=== PATIENT | female | born 1975 | race Caucasian/White ===

== ENCOUNTER 2018-02-26 20:43 | Outpatient (CLI) | payer SELFPAY | END 2018-02-26 20:44 | disposition short-term general hospital (02) | LOC: EMS 20:43 | PROVIDERS: ATTEND Surgery | DX: S99.911A Unspecified injury of right ankle, initial encounter (principal); V00.121A Fall from non-in-line roller-skates, initial encounter; Y93.51 Activity, roller skating (inline) and skateboarding; Y92.838 Other recreation area as the place of occurrence of the external cause | CPT/HCPCS: A0425; A0427 ==

== ENCOUNTER 2020-04-01 07:00 | Outpatient (CLI) | payer OTHER ==
[2020-04-01 11:50] LABS: BASOPHILS % (AUTO) 0.5 %; EOSINOPHILS % (AUTO) 10.1 %; HGB - HEMOGLOBIN 13.1 g/dL (12.0-16.0); LYMPHOCYTES % (AUTO) 27.8 %; MEAN CORPUSCULAR HEMOGLOBIN 28.4 pg (27.0-31.0); MEAN CORPUSCULAR HGB CONC 32.6 g/dL (32.0-36.0); MEAN CORPUSCULAR VOLUME 87.2 fL (81.0-99.0); MEAN PLATELET VOLUME 9.5 fL (7.9-10.8); MONOCYTES % (AUTO) 5.4 %; NEUTROPHILS % (AUTO) 55.8 %; PLT - PLATELET COUNT 340 10^3/uL (130-450); RED BLOOD COUNT 4.61 10^6/uL (4.20-5.40); WHITE BLOOD COUNT 11.6 x10^3/uL (4.8-10.8)
[2020-04-01 12:02] LABS: ABNORMAL LYMPHS % (MANUAL) 0 %; BAND NEUTROPHILS % (MANUAL) 0 %
[2020-04-01 12:11] LABS: ALBUMIN/GLOBULIN RATIO 1.3 (1.0-2.2); BILIRUBIN,TOTAL 0.5 mg/dL (0.2-1.0); CALCIUM 9.5 mg/dL (8.5-10.3); CREATININE 0.7 mg/dL (0.4-1.0); TOTAL PROTEIN 7.2 g/dL (6.7-8.2)
[2020-04-01 13:04] LABS: EOSINOPHILS # (MANUAL) 0.8 10^3/uL (0-0.7); LYMPHOCYTES # (MANUAL) 3.2 10^3/uL (1.5-3.5); LYMPHOCYTES % (MANUAL) 28 %; MONOCYTES # (MANUAL) 0.7 10^3/uL (0.0-1.0)
[2020-04-01 13:06] LABS: PLATELET ESTIMATE, MANUAL NORMAL (130-450,000) (NORMAL); PLATELET MORPHOLOGY NORMAL APP (NORMAL); RBC MORPHOLOGY (MULTIPLE) NORMAL APPEARANCE (NORMAL)
[2020-04-01 13:07] LABS: DIFFERENTIAL COMMENT MANUAL DIFFERENTIAL
== END 2020-04-01 23:59 | disposition home or self-care (01) ==
LOC: LAB.WCP 07:00
PROVIDERS: ATTEND Family Medicine
DX: K29.70 Gastritis, unspecified, without bleeding (principal)
CPT/HCPCS: 36415; 80053; 83690; 85025

== ENCOUNTER 2021-01-26 14:33 | Outpatient (CLI) | payer OTHER ==
--- NOTE | 2021-01-27 14:21 | Mammography Report ---
BILATERAL DIGITAL SCREENING MAMMOGRAM 3D/2D: 01/26/2021 CLINICAL: Routine screening. Comparison is made to exam dated: 06/23/2015 mammogram - [facility]. There are sc attered fibroglandular elements in both breasts. No significant masses, calcifications, or other findings are seen in either breast. There has been no significant interval change. IMPRESSION: NEGATIVE There is no mammographic evidence of malignancy. A 1 year screening mammogram is recommended. This exam was interpreted at Station ID: [id number]. NOTE: For mammograms, a report in lay terms will be sent to the patient. Approximately 15% of breast malignancies will not be visualized mammographically. In the management of a palpable breast mass, a negative mammogram must not discourage biopsy of a clinically suspicious lesion. Electronically Signed By: Piero Thomas M.D. [email or web address]:01/26/2021 17:36:09 ACR BI-RADS Category 1: Negative 3341F PARENCHYMAL PATTERN: (A) - The breast(s) demonstrate(s) scattered fibroglandular densities. BI-RADS CATEGORY: (1) - 1 RECOMMENDATION: (ANNUAL) - Recommend routine annual screening mammography. [id number] 1 year screening LATERALITY: (B)
== END 2021-01-26 14:34 | disposition home or self-care (01) ==
LOC: DI 14:33
DX: Z12.31 Encounter for screening mammogram for malignant neoplasm of breast (principal)

== ENCOUNTER 2022-05-22 12:46 | Outpatient (CLI) | payer OTHER | END 2022-05-22 23:59 | disposition home or self-care (01) | LOC: LAB.N 12:46 | PROVIDERS: ATTEND Obstetrics & Gynecology | DX: Z01.812 Encounter for preprocedural laboratory examination (principal); Z20.822 Contact with and (suspected) exposure to COVID-19 ==

== ENCOUNTER 2022-05-23 08:54 | Day surgery (SDC) | payer OTHER ==
[2022-05-23] MEDS ORDERED: LACTATED RINGERS 1,000 ML IV ONE ×2 (09:17→12:07)
[2022-05-23 09:20] LABS: BASOPHILS # (AUTO) 0.1 10^3/uL (0.0-0.1); BASOPHILS % (AUTO) 0.8 %; EOSINOPHILS # (AUTO) 0.4 10^3/uL (0.0-0.7); HCT - HEMATOCRIT 42.5 % (37.0-47.0); HGB - HEMOGLOBIN 13.6 g/dL (12.0-16.0); LYMPHOCYTES # (AUTO) 3.7 10^3/uL (1.5-3.5); LYMPHOCYTES % (AUTO) 35.2 %; MEAN CORPUSCULAR HEMOGLOBIN 27.7 pg (27.0-31.0); MEAN CORPUSCULAR VOLUME 86.6 fL (81.0-99.0); MEAN PLATELET VOLUME 8.7 fL (7.9-10.8); MONOCYTES # (AUTO) 0.6 10^3/uL (0.0-1.0); MONOCYTES % (AUTO) 5.4 %; NEUTROPHILS # (AUTO) 5.6 10^3/uL (1.5-6.6); NEUTROPHILS % (AUTO) 54.2 %; PLT - PLATELET COUNT 377 10^3/uL (130-450); RED BLOOD COUNT 4.91 10^6/uL (4.20-5.40); RED CELL DISTRIBUTION WIDTH 12.4 % (12.0-15.0); WHITE BLOOD COUNT 10.4 x10^3/uL (4.8-10.8)
[2022-05-23 09:24] LABS: HCG UR QUAL NEGATIVE
--- NOTE | 2022-05-23 09:28 | ANESTHESIA ---
Pre-Anesthesia VS, & Labs - Diagnosis desires sterility - Procedure laparoscopic bilateral salpingectomy Vital Signs: Temp Pulse Resp BP Pulse Ox O2 Flow Rate 36.6 C 93 17 146/89 H 97 05/23/22 09:11 05/23/22 09:11 05/23/22 09:11 05/23/22 09:11 05/23/22 09:11 Height: 5 ft Weight (kg): 89 kg Body Mass Index: 38.3 BMI Classification: Obese - NPO >8 hours - Is Patient ?: No - Lab Results Current Lab Results: Laboratory Tests 05/23/22 09:18: WBC 10.4, RBC 4.91, Hgb 13.6, Hct 42.5, MCV 86.6, MCH 27.7, MCHC 32.0, RDW 12.4, Plt Count 377, MPV 8.7, Neut # (Auto) 5.6, Lymph # (Auto) 3.7 H, Young # (Auto) 0.6, Eos # (Auto) 0.4, Baso # (Auto) 0.1, Absolute Nucleated RBC 0.00, Nucleated RBC % 0.0 Lab results reviewed: Yes Fish Bones: 05/23/22 09:18 Home Medications and Allergies Home Medications: Ambulatory Orders Lisinopril [Zestril] 10 mg PO DAILY 05/18/22 Lisinopril [Zestril] 10 mg PO DAILY 05/18/22 Allergies/Adverse Reactions: Allergies Allergy/AdvReac Type Severity Reaction Status Date / Time No Known Drug Allergies Allergy Verified 07/30/15 11:58 Anes History & Medical History - Anesthetic History Anesthesia Complications: reports: Post-Operative Nausea/Vomiting - Medical History Cardiovascular: reports: Hypertension Pulmonary: reports: None Gastrointestinal: reports: None Urinary: reports: None Neuro: reports: None Musculoskeletal: reports: None Endocrine/Autoimmune: reports: None Blood Disorders: reports: None Skin: reports: None Smoking Status: Never smoker Psychosocial: reports: No issues indicated History of Cancer?: No - Surgical History Eyes Ears Nose Throat (EENT): reports: Myringotomy (tubes) Orthopedic: reports: Other (right ankle fracture) Exam General: Alert, Oriented x3, Cooperative, No acute distress Dental: WNL Mouth Openin Fingerbreadth Neck Mobility: Normal Mallampati classification: I Thyromental Distance: 4-6 cm Mental/Cognitive Status: Alert/Oriented X3, Normal for patient Plan Anesthesia Type: General Consent for Procedure(s) Verified and Reviewed: Yes Code Status: Attempt Resuscitation ASA classification: 2-Mild systemic disease Is this case an emergency?: No
[2022-05-23] MEDS ORDERED: fentaNYL 100 MCG/2 ML VIAL IVP PRN (09:30)
[2022-05-23] MEDS ORDERED: NALOXONE 0.4 MG/ML VIAL IVP PRN (09:30)
[2022-05-23] MEDS ORDERED: ONDANSETRON 4 MG/2 ML VIAL IVP PRN (09:30)
[2022-05-23] MEDS ORDERED: HYDROmorphone 0.5 MG/0.5 ML SYRINGE IVP PRN (09:30)
[2022-05-23] MEDS ORDERED: ATROPINE ABBOJECT 1 MG/10 ML SYRINGE IVP PRN (09:30)
[2022-05-23] MEDS ORDERED: MORPHINE 2 MG/ML CARPUJECT IVP PRN (09:30)
[2022-05-23] MEDS ORDERED: PROPOFOL 200 MG/20 ML VIAL IVP ONE (09:43)
[2022-05-23] MEDS ORDERED: MIDAZOLAM 2 MG/2 ML VIAL ONE (09:44)
[2022-05-23] MEDS ORDERED: ROCURONIUM 50 MG/5 ML VIAL ONE (09:44)
[2022-05-23] MEDS ORDERED: LIDOCAINE MPF 2%-EPI 1:200000 20 ML VIAL ONE (09:45)
[2022-05-23] MEDS ORDERED: BUPIVACAINE 0.5% PF 30 ML VIAL ONE (09:45)
[2022-05-23] MEDS ORDERED: LACTATED RINGERS 1,000 ML IV SCH (10:00)
[2022-05-23] MEDS ORDERED: DEXAMETHASONE 4 MG/ML VIAL ONE (10:32)
[2022-05-23] MEDS ORDERED: fentaNYL 100 MCG/2 ML VIAL ONE ×2 (10:52→12:19)
[2022-05-23] MEDS ORDERED: BUPIVACAINE 0.5% PF 30 ML VIAL INFIL ONE ×2 (11:02)
[2022-05-23] MEDS ORDERED: LIDOCAINE MPF 1%-EPI 1:200000 30 ML VIAL SUBQ ONE ×2 (11:02)
[2022-05-23] MEDS ORDERED: HYDROcod/ACETAM 10 MG/325 MG TABLET PO PRN (11:42)
[2022-05-23] MEDS ORDERED: SUGAMMADEX 200 MG/2 ML VIAL IVP ONE (11:49)
--- NOTE | 2022-05-23 11:49 | OPERATIVE REPORT ---
Operative Report - General Procedure Date: 05/13/22 Planned Procedure: Laparoscopic bilateral salpingectomy Pre-Op Diagnosis: Desires sterility Procedure Performed: Laparoscopic bilateral salpingectomy Left paratubal cystectomy Post Op Diagnosis: Desires sterility, left adnexal cyst - Procedure Note Primary Surgeon: Arnulfo Denney MD Secondary Surgeon: Jennifer Paredes DO Anesthesia Provider: Pamella Noyola CRNA Anesthesia Technique: General ET tube Pathology: Bilateral fallopian tubes Left paratubal cyst IV Fluids (mL): 900 Estimated Blood Loss (mL): 10 Complications: None - Other Other Information/Narrative: Prior to surgery, we discussed the risks, alternatives, benefits to tubal ligation. We discussed long-acting control such as IUDs and implants. We had discussion about partner vasectomy and the pros and cons to this including a smaller surgery, and easier recovery. We discussed the general risk of surgery including infection, bleeding, damage to other organs, needing a larger incision. Specific to tubal ligation, we discussed the risk of regret, and discussed that regret is greater in those under 30, without children, and not in stable relationships. Patient says she is confident in her decision to not have any more children. We also discussed the risk of failure, and that less than 1/100 tubal ligation fail, but if it did, she would be at increased risk of ectopic . Patient desires to proceed with bilateral tubal ligation. Patient was taken to the OR and placed in the dorsal lithotomy position using gr eat white stirrups after adequate anesthesia was obtained. Patient was prepped and draped in the usual fashion. A bivalve speculum was used to visualize the cervix and a uterine manipulator was placed. 4 mL of 2% lidocaine with epinephrine was placed for a paracervical block. The uterus was sounded to 7 cm. The HUMI medicated was then placed through the cervical os and the balloon was inflated. Attention was then turned to the abdomen after sterile attire was exchanged. 0.25% Marcaine was injected below the umbilicus. An 11 blade scalpel was used to incise the skin. Direct visual entry was used to place the infraumbilical trocar, but due to patient's body habitus, this was difficult. A varies needle was used to attempt into the cavity and insufflation was achieved. The trocar was then placed under direct visualization. Upon entering the peritoneal cavity, low flow was used to ensure appropriate positioning. Upon visualization of the abdominal cavity, high flow was then initiated. The patient had a large amount of preperitoneal and intra-abdominal adipose tissue. 2 additional trocars was placed under visualization in a similar fashion in the right and left lower quad rants. After visualization of the left fallopian tube, a cyst was noted to be paratubal in origin and separate from the ovary. The tube was grasped with an atraumatic grasper. The mesosalpinx was cauterized and cut with a Ligasure device. This was carried up until the level of the cornua. At that point the tube was coagulated and transected from the uterus. Attention was then turned to the right fallopian tube which was then removed in a similar fashion. The left lower quadrant trocar was exchanged for a 11 mm trocar so a Endo Catch bag could be used. The bag was inserted into the abdomen, opened and the specimen was placed inside. The bag was moved to the service of the abdomen and the bag was opened. With visualization of the cyst, it was incised with the 11 blade scalpel and contents removed with suction. The bag was easily removed from the abdomen. The abdomen was reviewed for hemostasis, and a healthy-appearing liver was noted. The Dagoberto-Aquiels device was then inserted through the 11 mm trocar site and bilateral sutures were placed to reapproximate the fascia using 0 Vicryl. The trocars were then removed, and abdomen was evacuated of gas. The trocar sites were then closed with a 4-0 Monocryl in a sub-cuticular fashion and covered with Dermabond. The uterine manipulator was removed and hemostasis was noted. Patient was taken to the PACU in stable condition.
[2022-05-23] MEDS ORDERED: oxyCODONE 5 MG TABLET PO ONE (13:16)
[2022-05-23] MEDS ORDERED: ACETAMINOPHEN 500 MG TABLET PO ONE (13:17)
[2022-05-23 14:54] VITALS: BP 118/72
--- NOTE | 2022-05-23 15:33 | ANESTHESIA POST OP EVALUATION ---
Anesthesia Post Eval - Post Anesthesia Eval Vitals: Last Vital Signs Temp 36 C L 05/23/22 14:30 Pulse 70 05/23/22 14:30 Resp 16 05/23/22 14:30 BP 118/72 05/23/22 14:30 Pulse Ox 95 05/23/22 14:30 O2 Flow Rate CV Function Including HR & BP: Stable Pain Control: Satisfactory Nausea & Vomiting: Negative Mental Status: Baseline Respiratory Status: Airway Patent Hydration Status: Satisfactory Anesthesia Complications: None
== END 2022-05-23 08:55 | disposition home or self-care (01) ==
LOC: SDS 08:54
PROVIDERS: ATTEND Obstetrics & Gynecology
PROC: 0UB64ZZ Excision of Left Fallopian Tube, Percutaneous Endoscopic Approach (ICD-10-PCS; 2022-05-23)
PROC: 0UT74ZZ Resection of Bilateral Fallopian Tubes, Percutaneous Endoscopic Approach (ICD-10-PCS; principal; 2022-05-23 10:00)
DX: Z30.2 Encounter for sterilization (principal); N83.8 Other noninflammatory disorders of ovary, fallopian tube and broad ligament; E66.9 Obesity, unspecified; Z68.38 Body mass index [BMI] 38.0-38.9, adult; I10 Essential (primary) hypertension; Z20.822 Contact with and (suspected) exposure to COVID-19
CPT/HCPCS: 36415; 58661; 58662; 81025; 85025; A9270; J7120

== ENCOUNTER 2023-01-25 08:00 | Outpatient (CLI) | payer OTHER | END 2023-01-25 23:59 | disposition home or self-care (01) | LOC: LAB.N 08:00 | PROVIDERS: ATTEND Specialist | DX: R30.0 Dysuria (principal) | CPT/HCPCS: 87086; 87181 ==

== ENCOUNTER 2023-04-12 08:13 | Outpatient (CLI) | payer OTHER ==
[2023-04-12 11:44] LABS: BASOPHILS # (AUTO) 0.1 10^3/uL (0.0-0.1); BASOPHILS % (AUTO) 0.6 %; EOSINOPHILS # (AUTO) 0.3 10^3/uL (0.0-0.7); EOSINOPHILS % (AUTO) 3.3 %; HCT - HEMATOCRIT 43.1 % (37.0-47.0); HGB - HEMOGLOBIN 13.5 g/dL (12.0-16.0); LYMPHOCYTES # (AUTO) 3.7 10^3/uL (1.5-3.5); LYMPHOCYTES % (AUTO) 37.6 %; MEAN CORPUSCULAR HEMOGLOBIN 27.3 pg (27.0-31.0); MEAN CORPUSCULAR HGB CONC 31.3 g/dL (32.0-36.0); MEAN CORPUSCULAR VOLUME 87.2 fL (81.0-99.0); MEAN PLATELET VOLUME 9.3 fL (7.9-10.8); MONOCYTES # (AUTO) 0.5 10^3/uL (0.0-1.0); MONOCYTES % (AUTO) 5.4 %; NEUTROPHILS # (AUTO) 5.2 10^3/uL (1.5-6.6); NEUTROPHILS % (AUTO) 52.9 %; PLT - PLATELET COUNT 408 10^3/uL (130-450); RED BLOOD COUNT 4.94 10^6/uL (4.20-5.40); RED CELL DISTRIBUTION WIDTH 12.2 % (12.0-15.0); WHITE BLOOD COUNT 9.8 x10^3/uL (4.8-10.8)
[2023-04-12 12:18] LABS: ALBUMIN 4.4 g/dL (3.2-5.5); ALBUMIN/GLOBULIN RATIO 1.5 (1.0-2.2); ALKALINE PHOSPHATASE 96 IU/L (42-121); ALT ALANINE AMINOTRANSFERASE 31 IU/L (10-60); AST ASPARTATE AMINOTRANSFERASE 25 IU/L (10-42); BILIRUBIN,TOTAL 0.3 mg/dL (0.2-1.0); BUN - BLOOD UREA NITROGEN 10 mg/dL (6-20); CALCIUM 10.6 mg/dL (8.5-10.3); CARBON DIOXIDE - CO2 30 mmol/L (21-32); CHLORIDE 101 mmol/L (101-111); CHOL/HDL RATIO 3.8 (<4.4); CHOLESTEROL 237 mg/dL; CREATININE 0.7 mg/dL (0.6-1.3); GFR - MDRD 89 (>89); GLUCOSE 103 mg/dL (74-104); HDL CHOLESTEROL 62 mg/dL; LDL CHOLESTEROL,CALCULATED 131 mg/dL; LDL/HDL RATIO 2.1 (<4.4); SODIUM 137 mmol/L (135-145); TOTAL PROTEIN 7.3 g/dL (6.4-8.9); TRIGLYCERIDES 221 mg/dL (48-352); VLDL CHOLESTEROL 44 mg/dL
[2023-04-12 12:31] LABS: THYROID STIMULATING HORMONE 2.42 uIU/mL (0.34-5.60)
== END 2023-04-12 08:14 | disposition home or self-care (01) ==
LOC: LAB.N 08:13
PROVIDERS: ATTEND Physician Assistant Medical
DX: Z00.00 Encounter for general adult medical examination without abnormal findings (principal)
CPT/HCPCS: 36415; 80053; 80061; 83721; 84443; 85025

== ENCOUNTER 2023-05-31 09:30 | Outpatient (CLI) | payer OTHER ==
[2023-05-31 12:39] LABS: CALCIUM 9.8 mg/dL (8.5-10.3); CREATININE 0.7 mg/dL (0.6-1.3); POTASSIUM 4.3 mmol/L (3.5-4.5)
== END 2023-05-31 09:31 | disposition home or self-care (01) ==
LOC: LAB.N 09:30
PROVIDERS: ATTEND Physician Assistant Medical
DX: E83.52 Hypercalcemia (principal)
CPT/HCPCS: 36415; 80048

== ENCOUNTER 2023-07-21 12:15 | Outpatient (CLI) | payer OTHER | END 2023-07-21 12:30 | disposition home or self-care (01) | LOC: LAB.N 12:15 | PROVIDERS: ATTEND Registered Nurse | DX: N30.00 Acute cystitis without hematuria (principal) | CPT/HCPCS: 87077; 87086; 87181 ==

== ENCOUNTER 2023-09-15 12:30 | Outpatient (CLI) | payer OTHER | END 2023-09-15 12:45 | disposition home or self-care (01) | LOC: LAB.N 12:30 | PROVIDERS: ATTEND Physician Assistant Medical | DX: N30.00 Acute cystitis without hematuria (principal) | CPT/HCPCS: 81514; 87086; 87491; 87591; 87661 ==

== ENCOUNTER 2024-02-19 09:21 | Outpatient (CLI) | payer OTHER ==
--- NOTE | 2024-02-20 11:00 | Mammography Report ---
BILATERAL DIGITAL SCREENING MAMMOGRAM 3D/2D: 02/19/2024 CLINICAL: Routine screening. Comparison is made to exams dated: 01/26/2021 mammogram and 06/23/2015 mammogram - [facility]. There are scattered areas of fibroglandular density in both breasts (category b / 25%-50% glandular t issue). No significant masses, calcifications, or other findings are seen in either breast. There has been no significant interval change. IMPRESSION: NEGATIVE There is no mammographic evidence of malignancy. A 1 year screening mammogram is recommended. Based on the Tyrer Cuzick model (a risk assessment model) the patient's lifetime risk is 8.7% and her 10 year risk is 1.9%. According to the ACR, ACS, and NCCN guidelines, an annual breast MRI exam christian g with mammogram is recommended if the patient's lifetime risk is 20% or greater. This exam was interpreted at Station ID: [id number]. NOTE: For mammograms, a report in lay terms will be sent to the patient. Approximately 15% of breast malignancies will not be visualized mammographically. In the management of a palpable breast mass, a negative mammogram must not discourage biopsy of a clinically suspicious lesion. Electronically Signed By: Bhargav [email or web address]:02/19/2024 10:07:30 letter sent: No_Letter ACR BI-RADS Category 1: Negative 3341F PARENCHYMAL PATTERN: (A) - The breast(s) demonstrate(s) scattered fibroglandular densities. BI-RADS CATEGORY: (1) - 1 RECOMMENDATION: (ANNUAL) - Recommend routine annual screening mammography. [id number] 1 year screening LATERALITY: (B)
== END 2024-02-19 09:22 | disposition home or self-care (01) ==
LOC: DI.N 09:21
DX: Z12.31 Encounter for screening mammogram for malignant neoplasm of breast (principal); R92.323 Mammographic fibroglandular density, bilateral breasts